=== PATIENT | male | born 1995 | race Caucasian/White ===

== ENCOUNTER → 2019-08-17 16:31 | Outpatient (BNVA) | payer BC, OTHER, SELFPAY | PROVIDERS: Visit Provider Nurse Practitioner Family | DX: R00.0 Tachycardia, unspecified (principal); F41.8 Other specified anxiety disorders; Z79.899 Other long term (current) drug therapy; E55.9 Vitamin D deficiency, unspecified; R55 Syncope and collapse | CPT/HCPCS: 80053; 80061; 81001; 82306; 83036; 84439; 84443; 84481; 85025 ==

== ENCOUNTER → 2019-09-13 09:41 | Outpatient (BNVA) | payer OTHER, BC, SELFPAY | PROVIDERS: PCP Nurse Practitioner Family; Visit Provider Nurse Practitioner Family | DX: R68.89 Other general symptoms and signs (principal); U07.1 COVID-19 | CPT/HCPCS: 87635 ==

== ENCOUNTER 2019-10-01 13:38 | Outpatient (CLI) | payer OTHER, BC, SELFPAY ==
--- NOTE | 2019-10-01 14:15 | USCV_ITS ---
Roni Ponce Age: 24 Gender: M : 1995 Exam Date: 10/01/2019 14:14 Ordering Phys: Shweta Hernandez MD ([email or web address]) Technologist: Rosana Morrison Exam Location: [facility] [place] Indication: SYNCOPE BP: / HR: 64 Rhythm: Sinus Technical Quality: Good MEASUREMENTS (Male / Female) Normal Values 2D ECHO LV Diastolic Diameter PLAX 4.2 cm 4.2 - 5.9 / 3.9 - 5.3 cm LV Systolic Diameter PLAX 3.4 cm LV Chamber Size 4.1 cm IVS Diastolic Thickness 0.7 cm 0.6 - 1.0 / 0.6 - 0.9 cm IVS Systolic Thickness 1.0 cm LVPW Diastolic Thickness 0.7 cm 0.6 - 1.0 / 0.6 - 0.9 cm LVPW Systolic Thickness 1.0 cm RV Chamber Size 2.5 cm LVOT Diameter 2.0 cm LV Ejection Fraction 2D Teich 40.1 % LV Ejection Fraction MOD 2C 66.9 % LV Ejection Fraction 2C AL 66.4 % LA Diameter 2.9 cm LA Width 2.7 cm LA Height 4.4 cm RA Width 2.7 cm RA Height 3.8 cm Aorta at Sinotubular Diameter 2.0 cm M-MODE LV Diastolic Diameter MM 4.6 cm 4.2 - 5.9 / 3.9 - 5.3 cm LV Systolic Diameter MM 3.1 cm LV Ejection Fraction MM Teich 59.9 % IVS Diastolic Thickness MM 0.9 cm 0.6 - 1.0 / 0.6 - 0.9 cm IVS Systolic Thickness MM 0.9 cm LVPW Diastolic Thickness MM 0.6 cm 0.6 - 1.0 / 0.6 - 0.9 cm LVPW Systolic Thickness MM 1.1 cm RV Diastolic Diameter MM 2.7 cm Aortic Annulus Diameter 2.7 cm LA Ao Ratio MM 1.1 MV E Point Septal Separation 0.1 cm DOPPLER AV Peak Velocity 139.0 cm/s LVOT Peak Velocity 94.0 cm/s AV Area Cont Eq vti 2.3 cm squared AV Area Cont Eq pk 2.1 cm squared MV E' Velocity 23.0 cm/s TR Peak Velocity 195.6 cm/s TR Peak Gradient 15.3 mmHg TR Mean Velocity 145.8 cm/s TR Mean Gradient 9.5 mmHg TR Velocity Time Integral 48.0 cm TV Peak E Velocity 43.0 cm/s PV Peak Velocity 83.0 cm/s FINDINGS Left Ventricle Normal left ventricular cavity size. Normal left ventricular systolic function. No regional wall motion abnormalities. Left ventricular ejection fraction is estimated at 59 %. Right Ventricle The right ventricle is normal in size and function. RVSP could not be calculated due to incomplete tricuspid regurgitation velocity profile. Right Atrium The right atrium is normal in size. Left Atrium The left atrium is normal in size. Mitral Valve Structurally normal mitral valve without significant stenosis or prolapse. There is no mitral regurgitation. Aortic Valve Structurally normal aortic valve without significant sclerosis or stenosis. There is no aortic regurgitation. Tricuspid Valve Mild tricuspid valve regurgitation. Pulmonic Valve Trace pulmonary valve regurgitation. Pericardium Normal pericardium without effusion. Aorta Normal ascending aorta dimension. CONCLUSIONS 1-Normal left ventricular cavity size. Normal left ventricular systolic function. No regional wall motion abnormalities. Left ventricular ejection fraction is estimated at 59 %. 2-Mild tricuspid valve regurgitation. 3-No other significant valve abnormalities. 4-There is no pericardial effusion. 5-The right ventricle is normal in size and function. RVSP could not be calculated due to incomplete tricuspid regurgitation velocity profile. 6-Right atrial pressure is around 5 mm of mercury. 7-There are no prior echocardiogram studies to compare. Shweta Hernandez MD (Electronically Signed) Final Date: 02 October 2019 20:36 S
== END 2019-10-01 13:39 | disposition home or self-care (01) ==
LOC: RAD 13:39
PROVIDERS: PCP Nurse Practitioner Family; Visit Provider Internal Medicine Cardiovascular Disease
DX: R55 Syncope and collapse (principal); I07.1 Rheumatic tricuspid insufficiency
CPT/HCPCS: 93306

== ENCOUNTER → 2020-01-21 08:44 | Outpatient (BNVA) | payer OTHER, BC, SELFPAY | PROVIDERS: PCP Nurse Practitioner Family; Visit Provider Nurse Practitioner Family | DX: F41.8 Other specified anxiety disorders (principal); E55.9 Vitamin D deficiency, unspecified; Z79.899 Other long term (current) drug therapy; K21.9 Gastro-esophageal reflux disease without esophagitis; R63.4 Abnormal weight loss; R10.9 Unspecified abdominal pain; R10.84 Generalized abdominal pain | CPT/HCPCS: 80053; 80061; 81003; 82306; 83036; 84439; 84443; 84481; 85025 ==

== ENCOUNTER → 2020-03-21 09:38 | Outpatient (BNVA) | payer OTHER, BC, SELFPAY | PROVIDERS: PCP Nurse Practitioner Family; Visit Provider Internal Medicine | DX: K21.9 Gastro-esophageal reflux disease without esophagitis (principal) | CPT/HCPCS: 87635 ==

== ENCOUNTER 2020-03-24 08:19 | Day surgery (SDC) | payer OTHER, BC, SELFPAY ==
[2020-03-22 13:15] VITALS: BMI 19.8
[2020-03-24 08:30] VITALS: BP 132/83; PULSE 77; RESP 16; TEMP 37; O2SAT 98
[2020-03-24] MEDS: sodium chloride 0.9% 1,000 ML 30 ML IV (08:49)
--- NOTE | 2020-03-24 08:58 | ANES.PREANE2 ---
Pre-Anesthetic Assessment Pre-Anesthetic Assessment: Height/Weight: Height 1.73 m Weight 58.967 kg Temp Pulse Resp BP Pulse Ox 98.6 F 77 16 132/83 98 03/24/20 08:30 03/24/20 08:30 03/24/20 08:30 03/24/20 08:30 03/24/20 08:30 Preop Diagnosis: egd Proposed Procedure: Operation Date: 03/24/20 09:30 Proposed Procedures p EGD 96357 k21.9(Not Applicable) - Des Barger MD Familial anesthetic complications: None Was Beta Jan taken within 24 hours: N/A Last intake: Intake Last Liquid Date 03/23/20 Last Liquid Time 19:00 Last Solid Date 03/23/20 Last Solid Time 19:00 Social: Social History: No alcohol and No tobacco Comment: medical marijuana use Exam: Pre-Anes Outpt Exam: alert, oriented x 3, clear to auscultation bilaterally and regular rate & rhythm Airway: Cervical ROM: WNL MP: 2 Dentition: Full Additional comments: mandibular fracture - currently healed, no pain, no restrictions in motion CV/HEM: Comments: RBBB Hx syncope resulting in mandibular fracture - worked up by cardiology w/ holter monitor, RBB found. Patient functional, achieves > 4 METS GI: GI: GERD Anesthetic Plan: ASA status: 2 Anesthesia: MAC Other: Patient on medical marijuana for R shoulder pain, will have patient get in comfortable lateral position for procedure before inducing anesthesia Risk of > 500 ml blood loss (7ml/kg in children): No Meds/Allergies Current Medications: Current Medications Generic Name Dose Route Start Last Admin Trade Name Freq PRN Reason Stop Dose Admin Sodium Chloride 1,000 mls @ 30 ml s/hr 03/24/20 08:45 03/24/20 08:49 Sodium Chloride 0.9% IV 30 mls/hr .Q24H CARL Administration PFSH Anesthesia PFSH: Medical History (Updated 02/07/20 @ 14:47 by Des Barger MD) COVID-19 COVID Test positive on 09/15/2019 Depression with anxiety Flu-like symptoms Fracture, mandible fell at home fracturing jaw in two places GERD (gastroesophageal reflux disease) Medical marijuana use 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 Right shoulder injury Vitamin D deficiency Surgical History History of mandibular surgery Family History Grandmother Clotting disorder Dementia Mother Hyperlipidemia Hypertension Denies family history of Diabetes CAD (coronary artery disease) Psychiatric illness Chronic kidney disease (CKD) Suicide Anesthesia complication Bleeding disorder Family history of premature coronary artery disease Lung disease Cancer Stroke Social History Smoking and tobacco status: current every day smoker cigarettes [ Other cigarette details: uses vape daily, trace than 30 times a day ] Second hand smoke exposure: No Alcohol intake: never Desire information about alcohol rehabilitation?: No Counseling given: No Desire information about substance/drug rehabilitation?: No Counseling given: No Data Anesthesia Cardiac Studies: Holter Monitor 10/11/19
--- NOTE | 2020-03-24 09:22 | P.HP_ITS ---
Same Day Surgery H&P Indication for Procedure/HPI DATE OF PROCEDURE: March 24, 2020 CHIEF COMPLAINT/INDICATIONFOR SURGICAL PROCEDURE: Frequent heartburn PREOP DIAGNOSIS: egd PLANNED PROCEDRUE: Operation Date: 03/24/20 09:30 Proposed Procedures p EGD 46443 k21.9(Not Applicable) - Des Barger MD Medications/Allergies* Home Medications Medication Instructions Recorded Confirmed Type hydroxyzine HCl 50 mg tablet 50 mg PO BID PRN tab 02/07/20 03/22/20 History Allergies/Adverse Reactions Allergy/AdvReac Type Severity Reaction Status Date / Time No Known Allergies Allergy Verified 02/07/20 14:35 Current Medications: Generic Name Dose Route Start Last Admin Trade Name Freq PRN Reason Stop Dose Admin Sodium Chloride 1,000 mls @ 30 mls/hr 03/24/20 08:45 03/24/20 08:49 Sodium Chloride 0.9% IV 30 mls/hr .Q24H CARL Administration Pertinent History/Comorbid Conditions* Medical History (Updated 02/07/20 @ 14:47 by Des Barger MD) COVID-19 COVID Test positive on 09/15/2019 Depression with anxiety Flu-like symptoms Fracture, mandible fell at home fracturing jaw in two places GERD (gastroesophageal reflux disease) Medical marijuana use 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 Right shoulder injury Vitamin D deficiency Surgical History (Updated 09/15/19 @ 21:08 by STACEY Samaniego) History of mandibular surgery Family History (Updated 08/31/19 @ 12:44 by Indira Lambert RN) Clotting disorder Grandmother Dementia Grandmother Hyperlipidemia Mother Hypertension Mother Denies family history of Diabetes CAD (coronary artery disease) Psychiatric illness Chronic kidney disease (CKD) Suicide Anesthesia complication Bleeding disorder Family history of premature coronary artery disease Lung disease Cancer Stroke Social History Smoking and tobacco status: current every day smoker cigarettes [ Other cigarette details: uses vape daily, trace than 30 times a day ] Second hand smoke exposure: No Alcohol intake: never Desire information about alcohol rehabilitation?: No Counseling given: No Desire information about substance/drug rehabilitation?: No Counseling given: No Pertinent Exam Findings alert, oriented x 3, clear to auscultation bilaterally, regular rate & rhythm, operative site marked and procedure specific exam findings Recommendations Surgery/Procedure today Coding Level of Care Code Acute Hearing And Speech Assistant for Kerline Somers
[2020-03-24 10:18] VITALS: BP 132/65; PULSE 83; RESP 16; TEMP 36.6; O2SAT 97
[2020-03-24 10:35] VITALS: BP 114/63; PULSE 83; RESP 18; O2SAT 99
--- NOTE | 2020-03-24 16:25 | ANE.PACU2 ---
Inpatient post-anesthesia follow up: Airway intact: Yes Vital signs: Temperature 97.9 F Pulse Rate 83 Respiratory Rate 18 Blood Pressure 114/63 Pulse Oximetry 99 Oxygen Delivery Me thod Room Air Oxygen Flow Rate Fraction of Inspir ed Oxygen Hydration adequate: Yes Nausea and vomiting: No Pain level: 1 Mental status: Baseline
[2020-03-27 07:30] LABS: H. Pylori / CLO Test Negative
== END 2020-03-24 11:09 | disposition home or self-care (01) ==
PROVIDERS: PCP Nurse Practitioner Family; Visit Provider Internal Medicine
PROC: 0DJ08ZZ Inspection of Upper Intestinal Tract, Via Natural or Artificial Opening Endoscopic (ICD-10-PCS; CPT 43235; principal; 2020-03-24 09:30)
DX: R12 Heartburn (principal); K25.9 Gastric ulcer, unspecified as acute or chronic, without hemorrhage or perforation; K29.70 Gastritis, unspecified, without bleeding; Z86.16 Personal history of COVID-19; F32.9 Major depressive disorder, single episode, unspecified; F41.9 Anxiety disorder, unspecified; K21.9 Gastro-esophageal reflux disease without esophagitis; E55.9 Vitamin D deficiency, unspecified; F17.210 Nicotine dependence, cigarettes, uncomplicated
CPT/HCPCS: 12345; 43239; 87077; J2704; J7030

== ENCOUNTER → 2021-05-15 11:30 | Outpatient (BNVA) | payer OTHER, SELFPAY | PROVIDERS: PCP Nurse Practitioner Family; Visit Provider Nurse Practitioner Family | DX: R11.2 Nausea with vomiting, unspecified (principal); R19.7 Diarrhea, unspecified; E55.9 Vitamin D deficiency, unspecified; Z79.899 Other long term (current) drug therapy; Z13.6 Encounter for screening for cardiovascular disorders; K21.9 Gastro-esophageal reflux disease without esophagitis | CPT/HCPCS: 80053; 80061; 81003; 82306; 83036; 84439; 84443; 85025; 85651; 86140 ==

== ENCOUNTER → 2021-05-28 09:32 | Outpatient (BNVA) | payer OTHER, SELFPAY | PROVIDERS: PCP Nurse Practitioner Family; Visit Provider Nurse Practitioner Family | DX: R11.2 Nausea with vomiting, unspecified (principal); R19.7 Diarrhea, unspecified | CPT/HCPCS: 84439; 84443 ==

== ENCOUNTER → 2022-12-25 09:35 | Outpatient (BNVA) | payer MEDICAID, SELFPAY | PROVIDERS: PCP Nurse Practitioner Family; Visit Provider Nurse Practitioner Family | DX: K21.9 Gastro-esophageal reflux disease without esophagitis (principal) | CPT/HCPCS: 80053; 81000; 85025 ==